=== PATIENT | female | born 1980 | race Caucasian/White ===

== ENCOUNTER 2017-03-06 06:08 | Inpatient (IN) | payer MEDICAID ==
[~2017-03-06] VITALS: Ht 160 cm; Wt 97.1 kg
[2017-03-06] MEDS ORDERED: NALOXONE HCL 0.4 MG/ML 1ML VIAL IM PRN (07:00)
[2017-03-06] MEDS ORDERED: METHYLERGONOVINE MALEATE 0.2 MG/ML IM PRN (07:00)
[2017-03-06] MEDS ORDERED: CARBOPROST TROMETHAMINE 250 MCG/ML AMPUL IM PRN (07:00)
[2017-03-06] MEDS ORDERED: DEXT 5%/LR + PITOCIN 20UNITS/L 1,000 ML IV SCH (07:00)
[2017-03-06 07:24] LABS: BASOPHILS % 0.4 % (0.0-2.0); EOSINOPHILS % 3.3 % (0.0-5.0); HEMATOCRIT. 37.3 % (36.0-48.0); HEMOGLOBIN. 13.4 g/dL (12.0-16.0); LYMPHOCYTES % 22.9 % (20.0-50.0); MEAN CORPUSCULAR HEMOGLOBIN 30.5 pg (28.0-32.0); MEAN CORPUSCULAR VOLUME 84.9 fL (81.0-99.0); MEAN PLATELET VOLUME 9.3 fl (7.4-10.4); MONOCYTES % 7.2 % (2.0-8.0); NEUTROPHILS % 66.2 % (40.0-76.0); PLATELET 173 x1000/uL (130-400); RED BLOOD CELL COUNT 4.39 mill/uL (4.2-5.4); RED CELL DISTRIBUTION WIDTH 12.9 % (11.6-14.6)
[2017-03-06] MEDS: LACTATED RINGERS 1,000 ML IV SCH ×2 (07:27→08:15)
[2017-03-06 07:34] LABS: PARTIAL THROMBOPLASTIN TIME 26.3 sec (23.4-31.0)
[2017-03-06 08:15] LABS: KETONES URINE NEGATIVE (NEGATIVE); LEUKOCYTE ESTERASE URINE 3+ (NEGATIVE); NITRITE URINE NEGATIVE (NEGATIVE); OCCULT BLOOD URINE NEGATIVE (NEGATIVE); PROTEIN URINE NEGATIVE (NEGATIVE); UROBILINOGEN URINE 0.2 E.U./dL (0.2-1.0)
[2017-03-06 08:17] LABS: CLARITY URINE HAZY (CLEAR); COLOR URINE YELLOW (YELLOW)
[2017-03-06] MEDS ORDERED: MORPHINE SULFATE/PF 1MG/ML 10ML AMP ONE (08:57)
[2017-03-06] MEDS ORDERED: ONDANSETRON HCL 4MG/2ML VIAL IV PRN (09:15)
[2017-03-06] MEDS ORDERED: MEPERIDINE HCL/PF 25MG/ML CPJ IV PRN (09:15)
[2017-03-06] MEDS ORDERED: LABETALOL HCL 20MG/4ML CARPUJECT IV PRN (09:15)
[2017-03-06] MEDS ORDERED: HYDROMORPHONE HCL/PF 2MG/ML CPJ IV PRN (09:15)
[2017-03-06] MEDS ORDERED: MIDAZOLAM HCL 2 MG/2 ML VIAL ONE (10:15)
[2017-03-06] MEDS ORDERED: OXYTOCIN 10 UNITS/ML 1ML ONE ×2 (10:24→10:36)
[2017-03-06] MEDS ORDERED: CEFAZOLIN SODIUM 1000MG/VIAL ONE (10:37)
[2017-03-06] MEDS ORDERED: ONDANSETRON HCL 4MG/2ML VIAL ONE (10:37)
[2017-03-06] MEDS ORDERED: SODIUM CHLORIDE 0.9% 10ML VIAL ONE (10:37)
[2017-03-06] MEDS ORDERED: EPHEDRINE SULFATE 50MG/ML VIAL ONE (10:37)
[2017-03-06] MEDS ORDERED: BISACODYL 10MG SUPP PR PRN (10:45)
[2017-03-06] MEDS ORDERED: RHO(D) IMMUNE GLOBULIN 300 MCG/SYR IM PRN (10:45)
[2017-03-06] MEDS ORDERED: HYDROMORPHONE HCL/PF 2MG/ML CPJ IM PRN (10:45)
[2017-03-06] MEDS ORDERED: HYDROCODONE/ACETAMINOPHEN 5/325MG TABLET PO PRN (10:45)
[2017-03-06] MEDS: DEXT 5%/LR + PITOCIN 20UNITS/L 1,000 ML IV SCH ×3 (11:16→23:47)
[2017-03-06 11:59] LABS: HEPATITIS B SURFACE ANTIGEN NEGATIVE; RUBELLA IGG 217.9 IU/mL (4.99-10)
[2017-03-06 12:11] LABS: *AMPHETAMINES SCREEN URINE NEGATIVE (NEGATIVE); *BARBITURATES SCREEN URINE NEGATIVE (NEGATIVE); *BENZODIAZEPINES SCREEN URINE NEGATIVE (NEGATIVE); *COCAINE SCREEN URINE NEGATIVE (NEGATIVE); CANNABINOID URINE SCREEN NEGATIVE (NEGATIVE); METHADONE URINE SCREEN NEGATIVE (NEGATIVE); OPIATES URINE SCREEN NEGATIVE (NEGATIVE); PHENCYCLIDINE URINE SCREEN NEGATIVE (NEGATIVE)
[2017-03-06 13:00] VITALS: BP 143/83
[2017-03-06 15:09] VITALS: BP 120/70
[2017-03-06 19:40] VITALS: BP 120/62
[2017-03-06] MEDS ORDERED: BUPIVACAINE HCL/NS/PF EPIDURAL 100 ML EP ONE (21:45)
[2017-03-06] MEDS ORDERED: FENTANYL CITRATE/PF 50MCG/ML 2ML VIAL ONE (21:45)
[2017-03-06 23:55] VITALS: BP 110/58
[2017-03-07] MEDS: IBUPROFEN 400MG TABLET PO PRN ×2 (00:24→18:44)
[2017-03-07 04:00] VITALS: BP 103/61
[2017-03-07 07:01] LABS: BASOPHILS % 0.3 % (0.0-2.0); EOSINOPHILS % 1.2 % (0.0-5.0); HEMATOCRIT. 31.9 % (36.0-48.0); HEMOGLOBIN. 11.3 g/dL (12.0-16.0); LYMPHOCYTES % 15.3 % (20.0-50.0); MEAN CORPUSCULAR HEMOGLOBIN 30.6 pg (28.0-32.0); MEAN CORPUSCULAR VOLUME 86.1 fL (81.0-99.0); MEAN PLATELET VOLUME 9.4 fl (7.4-10.4); NEUTROPHILS % 77.2 % (40.0-76.0); PLATELET 139 x1000/uL (130-400)
[2017-03-07 08:00] VITALS: BP 99/51
[2017-03-07] MEDS: IBUPROFEN 800MG TABLET PO PRN (09:21)
[2017-03-07 17:06] VITALS: BP 112/62
[2017-03-07 20:00] VITALS: BP 120/83
[2017-03-08] VITALS: BP 112/71
[2017-03-08 08:00] VITALS: BP 124/78
[2017-03-08] MEDS: IBUPROFEN 400MG TABLET PO PRN (08:16)
[2017-03-08 16:02] VITALS: BP 130/75
[2017-03-08] MEDS: IBUPROFEN 800MG TABLET PO PRN (16:34)
[2017-03-08 20:00] VITALS: BP 115/65
[2017-03-09] MEDS: IBUPROFEN 400MG TABLET PO PRN (02:50)
[2017-03-09 05:18] VITALS: BP 123/68
[2017-03-09 08:00] VITALS: BP 123/82
== END 2017-03-09 11:10 | disposition home or self-care (01) | DRG 540 ==
LOC: L&D 06:08 → OBSVTOIN 06:08 → 7EST PP/OB 13:00
PROVIDERS: ADMIT Obstetrics & Gynecology; ATTEND Obstetrics & Gynecology
PROC: 0UT70ZZ Resection of Bilateral Fallopian Tubes, Open Approach (ICD-10-PCS; 2017-03-06)
PROC: 10D00Z1 Extraction of Products of Conception, Low, Open Approach (ICD-10-PCS; principal; 2017-03-06 10:30)
DX: O34.211 Maternal care for low transverse scar from previous cesarean delivery (principal); O24.420 Gestational diabetes mellitus in childbirth, diet controlled; D25.9 Leiomyoma of uterus, unspecified; O34.13 Maternal care for benign tumor of corpus uteri, third trimester; O09.523 Supervision of elderly multigravida, third trimester; Z37.0 Single live birth; Z3A.39 39 weeks gestation of pregnancy; O90.81 Anemia of the puerperium
CPT/HCPCS: 36415; 80305; 81001; 82947; 85025; 85610; 85730; 86592; 86703; 86762; 86850; 86900; 86920; 87340; 88304; 88307; A4216; J0171; J0690; J2250; J2274; J2405; J2590; J3010; J3490; J7120; A4315